=== PATIENT | female | born 1990 | race African-American/Black ===

== ENCOUNTER 2020-02-26 16:05 | Emergency (ER) | payer MEDICAID ==
[~2020-02-26] VITALS: Ht 172.7 cm; Wt 65.0 kg
[2020-02-26 16:21] VITALS: BP 117/64
[2020-02-26] MEDS ORDERED: ACETAMINOPHEN 325MG TABLET PO ONE (18:00)
== END 2020-02-26 20:12 | disposition home or self-care (01) ==
LOC: ER 16:05
DX: O26.892 Other specified pregnancy related conditions, second trimester (principal); Z3A.16 16 weeks gestation of pregnancy; H93.12 Tinnitus, left ear; H72.92 Unspecified perforation of tympanic membrane, left ear; Z88.5 Allergy status to narcotic agent
CPT/HCPCS: 76815; 81025; 93005; 99284

== ENCOUNTER 2021-02-07 22:03 | Emergency (ER) | payer MEDICAID ==
[~2021-02-07] VITALS: Ht 162.6 cm; Wt 70.0 kg
[2021-02-08] MEDS ORDERED: FUROSEMIDE 40MG/4ML VIAL IV ONE (03:30)
[2021-02-08 03:50] LABS: CHLORIDE 106 mEq/L (98-107)
[2021-02-08 03:54] LABS: BASOPHILS % 0.8 % (0.0-2.0); EOSINOPHILS % 1.9 % (0.0-5.0); HEMATOCRIT. 31.5 % (36.0-48.0); HEMOGLOBIN. 9.5 g/dL (12.0-16.0); LYMPHOCYTES % 36.1 % (20.0-50.0); MEAN CORPUSCULAR HEMOGLOBIN 24.8 pg (28.0-32.0); MEAN PLATELET VOLUME 8.2 fl (7.4-10.4); MONOCYTES % 8.1 % (2.0-8.0); NEUTROPHILS % 53.1 % (40.0-76.0); PLATELET 498 x1000/uL (130-400); RED BLOOD CELL COUNT 3.84 mill/uL (4.2-5.4); RED CELL DISTRIBUTION WIDTH 17.4 % (11.6-14.6)
[2021-02-08 06:10] VITALS: BP 126/79
== END 2021-02-08 06:19 | disposition home or self-care (01) ==
LOC: ER 22:03
DX: R07.89 Other chest pain (principal); Z79.899 Other long term (current) drug therapy
CPT/HCPCS: 36415; 71045; 73590; 80053; 83880; 84484; 85025; 93005; 99284; 99285